=== PATIENT | female | born 1995 | race Caucasian/White ===

== ENCOUNTER 2017-02-06 23:09 | Emergency (ER) | payer BC ==
[2017-02-06 23:16] VITALS: BP 143/89; BMI 42.3
--- NOTE | 2017-02-07 00:03 | DR.EXTPAIN ---
HPI - Time seen Time seen: 23:10 - PCP Primary Care Physician: LUCAS - Complaint/Symptoms Chief Complaint Doctor Comments: She presents with left ankle pain onset this evening after tripping and falling into a hole in her yard. Chief Complaint:: "I STEPPED IN A HOLE IN THE YARD AND FELL, TWISTED MY ANKLE AND FELL ON TIP OF IT ." Self Treatment fo Chief Complaint: ICE, ELEVATION - Nurses notes reviewed Nurses Notes Review: Yes - Source History Provided: Patient - Mode of arrival Mode of Arrival: Ambulatory - Timing Onset of Chief Complaint: 02/06/17 - Associated signs and symptoms Associated Signs and Symptoms: None PMH - PMH Past Medical History: No Past Surgical History: No - Family History History of Family Medical Conditions: No - Social History Does patient currently use any type of tobacco product: No Have you used tobacco products in the last 12 months: No Type of Tobacco Use: None Does any household member use tobacco: No Alcohol Use: None Do you use any recreational Drugs:: No Lives With: Family Lives Where: Home - infectious screening Have you traveled outside the country in the last 6 months?: No Isolation: Standard ROS - Review of Systems Constitutional: No Symptoms Reported Eyes: No Symptoms Reported ENTM: No Symptoms Reported Respiratoy: No Symptoms Reported Cardiovascular: No Symptoms Reported Gastrointestinal/Abdominal: No Symptoms Reported Genitourinary: No Symptoms Reported Neurological: No Symptoms Reported Musculoskeletal: Left, Ankle Integumentary: No Symptoms Reported Hematologic/Lymphatic: No Symptoms Reported Endocrine: No Symptoms Reported Psychiatric: No Symptoms Reported All Other Systems: Reviewed and Negative PE - Vital Signs Vitals: Temperature 97.9 F Pulse Rate 118 Respiratory Rate 18 Blood Pressure 143/89 O2 Sat by Pulse Oximetry 96 - General Limitations: No Limitations General Appearance: Alert, In No Apparent Distress - Head Head Exam: Normal Inspection - Eyes Eye exam: Normal Appearance, PERRL, EOMI - ENT ENT Exam: Normal Exam - Neck Neck Exam: Normal Inspection, Full ROM, Trachea Midline - Chest Chest Inspection: Normal Inspection - Respiratory Respiratory Exam: Normal Lung Sounds Bilat - Cardiovascular Cardiovascular Exam: Regular Rate, Normal Rhythm - Abdominal Exam Abdominal Exam: Normal Inspection, Normal Bowel Sounds, Soft - Extremities Extremities Exam: Normal Inspection, Tenderness (Lt. ankle melvin-laterally), Normal Capillary Refill - Upper Extremities Shoulder Exam: Normal Inspection, Full ROM, Tenderness - Lower Extremities Ankle Exam: Normal Inspection, Tenderness (on left ankle melvin-laterally) Neurovascular/Tendon Exam: Normal Capillary Refill, Pulse Deficit, Motor Deficit , Sensory Deficit Gait Exam: Not Tested/Not Observed - Back Back Exam: Normal Inspection - Neurological Neurological Exam: Alert, Oriented X3, CN II-XII Intact - Psychiatric Psychiatric Exam: Normal Affect, Normal Mood - Skin Skin Exam: Warm, Dry, Intact, Normal Color ROR - XRAY XRAY Interpreted by: Radiologist (no acute displaced fracture.) - Diagnosis Discharge Problem: Left ankle sprain - Discharge Plan Disposition: HOME, SELF-CARE Condition: Stable - Follow ups/Referrals Follow ups/Referrals: [facility],None [Primary Care Provider] - 3 days - Instructions
--- NOTE | 2017-02-07 01:13 | RAD ---
Left ankle three views Indication: Pain after fall. Findings: There is no cortical lucency or malalignment. Impression: No acute displaced fracture. Reported By:
== END 2017-02-07 01:52 | disposition home or self-care (01) ==
LOC: ER 23:09
DX: S93.402A Sprain of unspecified ligament of left ankle, initial encounter (principal); W18.42XA Slipping, tripping and stumbling without falling due to stepping into hole or opening, initial encounter; Y92.096 Garden or yard of other non-institutional residence as the place of occurrence of the external cause
CPT/HCPCS: 29540; 73610; 99282